=== PATIENT | female | born 1945 | race Asian ===

== ENCOUNTER 2019-09-18 08:16 | Day surgery (SDC) | payer OTHER ==
[2019-09-10 12:47] VITALS: BMI 29.2
--- NOTE | 2019-09-17 10:04 | HP ---
Admitting History and Physical - Primary Care Physician PCP: Piter Marshall - Admission Chief Complaint: Right breast cancer History of Present Illness: 73 year old postmenapausal female who noted a palapble density in the right breast lateral aspect in 2018 that increased in size. Mammogram and US showed two highly suspicious densities right breast 9:00 one 3.6 cm 8 cm fn and and the other 1.8 cm 5 cm fn. 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 MRI showed 9:00 right breast cancer extending over area of 4.8x4.2 cm . There was also a separate left breast lesion and US core bx showed fibroadenoma. History Source: Patient Limitations to Obtaining History: No Limitations - Past Medical History Cardiovascular: Yes: HTN, Hyperlipdemia Endocrine: Yes: Hypothyroidism, Other (osteoporosis) Additional Past Medical History: H/O c diff while on vancomycin MRSA septic arthritis left knee - Past Surgical History Past Surgical History: Yes: Joint Replacement (Bilateral TKR 2011/right left 2013 left knee wash out infection left knee revision 2013/2015) - Smoking History Smoking history: Never smoked - Alcohol/Substance Use Hx Alcohol Use: No Home Medications - Allergies Allergies/Adverse Reactions: Allergies Allergy/AdvReac Type Severity Reaction Status Date / Time No Known Allergies Allergy Verified 09/10/19 12:47 - Home Medications Home Medications: Ambulatory Orders Alendronate Sodium [Fosamax] 1 tab PO WEEKLY 09/10/19 Amlodipine Besylate [Norvasc -] 5 mg PO DAILY 09/10/19 Aspirin [ASA -] 81 mg PO DAILY 09/10/19 Atorvastatin Calcium [Lipitor] 10 mg PO DAILY 09/10/19 Cefadroxil 500 mg PO BID 09/10/19 Hydrochlorothiazide [Hctz -] 25 mg PO DAILY 09/10/19 Levothyroxine [Synthroid -] 25 mcg PO DAILY 09/10/19 Metoprolol Tartrate 50 mg PO BID 09/10/19 metFORMIN HCL [Metformin HCl ER] 500 mg PO DAILY 09/10/19 Family Medical History Family History: Denies Physical Examination Constitutional: Yes: No Distress Breast(s): Yes: Other (ptotic B cup breasts discrete laterla breast densities right breast, left breast is negative, no adenopathy bilaterally) Problem List - Problems (1) Breast cancer, right breast Code(s): C50.911 - MALIGNANT NEOPLASM OF UNSP SITE OF RIGHT FEMALE BREAST Qualifiers: Breast location: overlapping sites of breast Estrogen receptor status: positive Patient sex: female Qualified Code(s): C50.811 - Malignant neoplasm of overlapping sites of right female breast; Z17.0 - Estrogen receptor positive status [ER+] Assessment/Plan right breast wide excision, mammogram needle localization, sentenl node biopsy , lymphoscintogram, possible axillary node dissection
[2019-09-18] MEDS ORDERED: PROPOFOL 20 ML ONE (12:51)
[2019-09-18] MEDS ORDERED: MIDAZOLAM HCL 2 MG/2 ML SINGLE DOSE VIAL ONE (12:51)
[2019-09-18] MEDS ORDERED: BUPIVACAINE HCL/PF 0.5% (5MG/ML) 10 ML VIAL ONE (12:58)
[2019-09-18] MEDS ORDERED: ISOSULFAN BLUE 10 MG/ML VIAL SQ ONE (12:58)
[2019-09-18] MEDS ORDERED: oxyCODONE HCL 5 MG TABLET PO PRN (12:59)
[2019-09-18] MEDS ORDERED: ONDANSETRON 4 MG/2 ML VIAL IVPUSH PRN ×2 (12:59→15:58)
[2019-09-18] MEDS ORDERED: LACTATED RINGERS SOLUTION 1,000 ML IV SCH (13:00)
[2019-09-18] MEDS ORDERED: LIDOCAINE HCL/PF 2% SDV 5ML VIAL ONE (13:46)
[2019-09-18] MEDS ORDERED: ceFAZolin SODIUM 1 GM VIAL ONE (13:53)
[2019-09-18] MEDS ORDERED: ONDANSETRON 4 MG/2 ML VIAL ONE (13:53)
[2019-09-18] MEDS ORDERED: EPHEDRINE SULFATE/0.9% NACL/PF 50 MG/10 ML SYRINGE NR ONE (14:08)
[2019-09-18] MEDS ORDERED: BUPIVACAINE HCL/PF 0.5% (5MG/ML) 10 ML VIAL IJ ONE (15:48)
[2019-09-18] MEDS ORDERED: KETOROLAC TROMETHAMINE 30 MG/1 ML VIAL IVPUSH PRN (15:58)
[2019-09-18] MEDS ORDERED: DEXTROSE 5%-0.45% SALINE 1,000 ML IV SCH (16:00)
[2019-09-18] MEDS ORDERED: DEXAMETHASONE SOD PHOSPHATE 4 MG/1 ML VIAL ONE (16:10)
[2019-09-18] MEDS ORDERED: PROMETHAZINE HCL 25 MG/1 ML VIAL ONE (16:28)
--- NOTE | 2019-09-18 18:08 | OP ---
DATE OF OPERATION: 09/18/2019 PREOPERATIVE DIAGNOSIS: Right breast 9 o'clock overlapping invasive cancer. POSTOPERATIVE DIAGNOSIS: Right breast 9 o'clock overlapping invasive cancer. PROCEDURE: Right breast partial mastectomy with mammographic needle localization and right axillary sentinel lymph node biopsy with 5 x 4-cm tissue transfer closure. ANESTHESIA: General laryngeal mask airway anesthesia. PRIMARY SURGEON: Julien Marshall MD TELEPHONE QUOTATION CLERK: ELISABETH Riddle COMPLICATIONS: There were no complications. Briefly, the patient is a 73-year-old G3, P3 postmenopausal female of [place] descent with no family history of breast or ovarian cancer. She felt a couple of densities in the lateral aspect of the right breast earlier in 2019 and eventually underwent the mammography and ultrasound showing 2 suspicious densities in the right breast 9 o'clock region measuring 3.6 and 1.8 cm, which were 8 cm and 5 cm from the nipple respectively. She underwent ultrasound-guided core biopsies on August 14, 2019, showing mucinous carcinoma, which was ER/[place] positive, HER2/debi negative with a low Ki-67. MRI just showed the localized 2 lesions in the right breast 9 o'clock area, and she had a separate breast 3 o'clock lesion, which was biopsied as a fibroadenoma. The patient has a history of chronic MRSA and septic knee replacement in the past and is on chronic antibiotics. She did not want to have any mastectomy and reconstruction, and after a long discussion with the family, it was felt she could undergo a partial mastectomy, though she would need to accept some lateral volume loss in the breast. The patient and family accepted this and agreed to proceed as planned with a partial mastectomy and sentinel lymph node biopsy. They understood the need for radiation with breast-conserving surgery as well as the benefits for endocrine therapy. DESCRIPTION OF PROCEDURE: The patient was brought in for the procedure on September 18, 2019, and first went to [facility] where needle localizations of the 2 lesions in the 9 o'clock aspect of the right breast as well as a lymphoscintigraphy was performed with a periareolar injection of technetium-99 around the right breast nipple areolar complex. She was then brought to the [place] holding area. In the holding area, a site verification was made, and informed consent was obtained. She was brought into the operating room and laid on the OR table in a supine position. Venodynes were placed on the lower extremities prior to induction, and she received 2 g of Ancef prior to incision. She underwent general laryngeal mask airway anesthesia, 3 mL of Lymphazurin blue were injected intradermally and peritumorally around the needle localization sites, and massage was instituted. The patient was sterilely prepped and draped in the usual fashion, and a time-out was performed. The right axillary sentinel lymph node biopsy was first performed. An incision was made in the right axilla, and dissection was undertaken and a blue lymphatic was easily seen coursing to a blue, hot lymph node with a 10-second [place] 9930, which was grossly benign. It was sent to Pathology in formalin for permanent section. Hemostasis was achieved and then no other blue or hot nodes were found, and background count after removal of this 1 node was 58. The axillary wound was then closed using interrupted 2-0 plain suture then interrupted 3-0 deep dermal Vicryl suture and a running 4-0 subcuticular Biosyn suture. At this point, the wide excision was undertaken around the lateral aspect of the right breast through a radial, elliptical incision removing a small amount of skin on the lateral aspect of the right breast. Dissection was undertaken around both needle localization sites, and the wide excision was undertaken encompassing both needle localization masses within 1 specimen. This was removed all the way down to the pectoralis major muscle. These were discrete lesions easily palpable, and the specimen was oriented with a long lateral, short superior suture, and specimen radiograph showed removal of the 2 clips in question. There was noted to be some mucinous extravasation during the wide excision, and hemostasis was achieved, and the wound was copiously irrigated with warm, sterile saline. At this point, separate margins were then taken on the superior, inferior, inferior, medial, lateral, and deep aspects with a suture marking the biopsy cavity side. Since the cancer was fairly close on the deep aspect, separate furthest deep margin was taken and sent as a separate specimen again with a suture marking the biopsy cavity side. All margins were sent separately to pathology. Hemostasis was achieved, and the wound was copiously irrigated. The breast tissue was then undermined, and a 5 x 4-cm tissue transfer closure was accomplished by reapproximating the breast tissue with 2-0 plain suture. The skin was closed using interrupted 3-0 deep dermal Vicryl suture and a running 4-0 subcuticular Biosyn suture. Mastisol, Steri-Strips were applied over the wounds with a compressive dressing placed over this. She was placed in a surgical bra postoperatively. The patient tolerated the procedure well without difficulty, and laryngeal mask airway tube was removed at the end of the case. She will be recovered in the post anesthesia care unit and will be discharged home the same day once discharge criteria are met. All sponge and needle counts were correct at the end of the case, and estimated blood loss was about 20 mL. She was hemodynamically stable with only a small bout of bradycardia during the case, which was quickly corrected. The patient will follow up in the office in 1 week for a formal wound pathology check. JULIEN MARSHALL M.D. [id number]
[2019-09-18 19:13] VITALS: BP 121/67; PULSE 79; TEMP 97.8
--- NOTE | 2019-09-21 10:56 | PATH ---
Surgical Pathology Report Patient Name: LISETTE SANTOS [facility]. Rec. #: [id number] /Age/Gender: 1945 (Age: 73) / F Account: [id number] Location: [facility] Taken: 09/18/2019 Received: 09/18/2019 Reported: 09/21/2019 Physicians: Piter Marshall M.D. Specimen(s) Received A: RIGHT AXILLARY SENTINEL LYMPH NODE #1 B: RIGHT BREAST WIDE EXCISION C: RIGHT BREAST SUPERIOR MARGIN D: RIGHT BREAST INFERIOR MARGIN E: RIGHT BREAST MEDIAL MARGIN F: RIGHT BREAST LATERAL MARGIN G: RIGHT BREAST ANTERIOR MARGIN H: RIGHT BREAST POSTERIOR MARGIN I: RIGHT BREAST FURTHER POSTERIOR MARGIN Clinical History Invasive mucinous carcinoma Final Diagnosis A. lymph node, right axillary sentinel #1, excision: One lymph node, negative for metastatic carcinoma (0/1). B. Breast, right, wide excision: Mucinous carcinoma (HYPERCELLULAR TYPE), moderately differentiated (tubule score: 3/3; nuclear grade: 2/3; mitotic score: 1/3, total score: 6/9; [place], grade 2). Carcinoma measures 3.8 cm in greatest dimension (gross measurement). Focal ductal carcinoma in situ (DCIS), Solid type, intermediate nuclear grade. Carcinoma extends to the posterior and lateral margins. Surgical margins are uninvolved by DCIS; DCIS is at 8 mm FROM the closest (posterior) margin. see specimenS C-i for final margins. Skin is present and is uninvolved by carcinoma. No lymphovascular invasion is identified. Prior biopsy site changes are present. Pathologic stage (pTNM): pT2 pN0. see also invasive carcinoma Case summary below. C. breast, right, superior margin, excision: Benign breast tissue. D. breast, right, inferior margin, excision: Benign breast tissue. E. breast, right, medial margin, excision: Benign breast tissue. F. breast, right, lateral margin, excision: Benign breast tissue. G. breast, right, anterior margin, excision: Benign breast tissue. H. breast, right, posterior margin, excision: Benign fibroadipose tissue showing prior biopsy changes. I. breast, right, furthest posterior margin, excision: Benign fibroadipose tissue. One small benign intramammary lymph node. Comments Breast Invasive Carcinoma: Surgical Pathology Case Summary (Based on AJCC TNM 8 th edition) Procedure _X_ Excision (less than total mastectomy) Specimen Laterality _X_ Right Tumor Size _X_ Greatest dimension of largest invasive focus >1 mm (millimeters): 38 mm Histologic Type _X_ Mucinous carcinoma Histologic Grade (Ana Histologic Score) Glandular (Acinar)/Tubular Differentiation _X_ Score 3 (<10% of tumor area forming glandular/tubular structures) Nuclear Pleomorphism _X_ Score 2 Mitotic Rate _X_ Score 1 Overall Grade _X_ Grade 2 (scores of 6 or 7) Tumor Focality _X_ Single focus of invasive carcinoma Ductal Carcinoma In Situ (DCIS) _X_ DCIS is present in specimen _X_ Negative for extensive intraductal component (EIC) Margins Invasive Carcinoma Margins _X_ Uninvolved by invasive carcinoma Distance from closest margin (millimeters): carcinoma extends to the posterior and lateral margins in wide excision B; final posterior (H&I) and lateral (F) margins are uninvolved by carcinoma. DCIS Margins _X_ Uninvolved by DCIS Distance from closest margin (millimeters): 8 mm from posterior margin in wide excision B; final posterior (H&I) margin are uninvolved by DCIS. Regional Lymph Nodes _X_ Uninvolved by tumor cells Number of Lymph Nodes Examined: 2 (1 intramammary lymph node in specimen I) Number of [place] Nodes Examined: 1 Treatment Effect _X_ No known presurgical therapy Lymphovascular Invasion _X_ Not identified Pathologic Stage Classification (pTNM, AJCC 8th Edition) Primary Tumor (Invasive Carcinoma) (pT) _X_ pT2: Tumor >20 mm but =50 mm in greatest dimension Category (pN) _X_ pN0: No regional lymph node metastasis identified or ITCs only Biomarker Studies Results of ER and RI studies performed on this specimen (block B4) at [facility] are as follows: ER (clone [id number] mouse monoclonal antibody by [employer]): > 95 % nuclear staining with strong intensity (positive). RI (clone16 mouse monoclonal antibody by [employer]) : > 95 % nuclear staining with strong intensity (positive). Results of Her2 and Ki67 studies will be reported separately in an addendum. Positive and negative controls (internal if applicable) show appropriate results. Formalin fixation and cold ischemic times are within current ASCO/CAP recommendations for ER, RI and Her2 testing. Electronically Signed Thuy Babin M.D. Addendum Reported: 09/21/2019 Addendum Diagnosis Results of Her2 (IHC) & Ki-67 studies performed on block B4 at [place], [place] ([id number]) are as follows: Her2 IHC (EP3 from [employer], formerly known as [id number], using [employer] Polymer Refine detection kit):0 (negative). Ki-67:~5% (low proliferative index). Positive and negative controls (internal if applicable) show appropriate results. Thuy Babin M.D. Gross Description A. Received in formalin labeled "right axillary sentinel lymph node," is a 2.0 x 0.7 x 0.5 cm logan lymph node. The specimen is bisected and entirely submitted in one cassette. B. Received in formalin, labeled "right breast wide excision," is a 6.0 x 5.8 x 3.2 cm. logan-yellow, irregular, portion of fibroadipose tissue with 2 needle localization wires present. There is a short suture marking the superior aspect and a long suture marking the lateral aspect, per the surgeon. The anterior surface displays a 3.5 x 0.9 cm logan, elliptical, unremarkable portion of skin. The specimen is inked as follows: superior blue; inferior green; lateral red; medial yellow; deep black. The specimen is serially sectioned from anterior to deep. Sectioning reveals a 3.8 x 3.2 x 2.0 cm. logan, mucinous, focally hemorrhagic mass. The mass abuts the deep margin and focally abuts the lateral margin. The mass is focally at 0.3 cm from the superior margin and at 0.8 cm from the inferior margin. [employer] sections are submitted in 11 cassettes as follows: 1-2-one bisected section of mass; 3-5-mass with deep margin; 6-7-mass with lateral margin; 8-mass with superior margin; 9-mass with inferior margin; 10-medial margin; 11-skin. Time to formalin fixation: 5 minutes Total formalin fixation time: Approximately 28 hours. C. Received in formalin labeled "right breast superior margin," is a 2.8 x 2.7 x 0.9 cm portion of fibroadipose tissue with a suture marking the biopsy cavity side, per the surgeon. The new margin is inked black and the specimen is serially sectioned. The specimen is entirely submitted in 3 cassettes. D. Received in formalin labeled "right breast inferior margin," is a 2.5 x 2.0 x 1.2 cm portion of fibroadipose tissue with a suture marking the biopsy cavity side, per the surgeon. The new margin is inked black and the specimen is serially sectioned. The specimen is entirely submitted in 3 cassettes. E. Received in formalin labeled "right breast medial margin," is a 2.6 x 2.2 x 1.3 cm portion of fibroadipose tissue with a suture marking the biopsy cavity side, per the surgeon. The new margin is inked black and the specimen is serially sectioned. The specimen is entirely submitted in 3 cassettes. F. Received in formalin labeled "right breast lateral margin," is a 3.3 x 2.7 x 1.0 cm portion of fibroadipose tissue with a suture marking the biopsy cavity side, per the surgeon. The new margin is inked black and the specimen is serially sectioned. The specimen is entirely submitted in 3 cassettes. G. Received in formalin labeled "right breast anterior margin," is a 2.5 x 1.7 x 0.8 cm portion of fibroadipose tissue with a suture marking the biopsy cavity side, per the surgeon. The new margin is inked black and the specimen is serially sectioned. The specimen is entirely submitted in 3 cassettes. H. Received in formalin labeled "right breast posterior margin," is a 2.8 x 2.5 x 1.4 cm portion of fibroadipose tissue with a suture marking the biopsy cavity side, per the surgeon. The new margin is inked black and the specimen is serially sectioned. The specimen is entirely submitted in 3 cassettes. I. Received in formalin labeled "right breast furthest posterior margin," is a 2.2 x 1.8 x 0.9 cm portion of fibroadipose tissue with a suture marking the biopsy cavity side, per the surgeon. The new margin is inked black and the specimen is serially sectioned. The specimen is entirely submitted in 3 cassettes area 09/19/2019 [facility]09/19/2019
== END 2019-09-18 19:10 | disposition home or self-care (01) ==
LOC: FASU 08:16
PROVIDERS: ATTEND Surgery Surgical Oncology
PROC: 0HBT0ZZ Excision of Right Breast, Open Approach (ICD-10-PCS; principal; 2019-09-18 14:09)
PROC: 0JX60ZC Transfer Chest Subcutaneous Tissue and Fascia with Skin, Subcutaneous Tissue and Fascia, Open Approach (ICD-10-PCS; 2019-09-18 14:09)
DX: C50.811 Malignant neoplasm of overlapping sites of right female breast (principal); Z17.0 Estrogen receptor positive status [ER+]; I10 Essential (primary) hypertension; E78.5 Hyperlipidemia, unspecified; E03.9 Hypothyroidism, unspecified; M81.0 Age-related osteoporosis without current pathological fracture; Z86.14 Personal history of Methicillin resistant Staphylococcus aureus infection; Z79.2 Long term (current) use of antibiotics
CPT/HCPCS: 19281; 19282; 78195-TC; 82962; 88307-TC; 88342-TC; 94760; A9541